=== PATIENT | male | born 1950 | race Caucasian/White ===

== ENCOUNTER 2016-08-20 00:54 | Emergency (ER) | payer MEDICARE ==
[2016-08-20 01:58] LABS: BASO % 0.5 % (0.0-2.0); EOS # 0.2 K/uL (0.0-0.7); EOS % 3.2 % (0.0-4.0); HEMATOCRIT 36.1 % (35.0-51.0); LYMPH # 2.3 K/uL (1.0-4.3); LYMPH % 49.3 % (20.0-40.0); MEAN CORPUSCULAR HEMOGLOBIN 31.2 pg (27.0-31.0); MEAN CORPUSCULAR HGB CONC 33.8 g/dL (33.0-37.0); MEAN PLATELET VOLUME 7.7 fL (7.2-11.7); MONO # 0.2 K/uL (0.0-0.8); NRBC % 0.1 % (0.0-2.0); RED CELL DISTRIBUTION WIDTH 15.6 % (11.5-14.5); WHITE BLOOD COUNT 4.7 K/uL (4.8-10.8)
[2016-08-20 02:07] LABS: CHLORIDE 107 mmol/L (98-107)
[2016-08-20 02:08] LABS: POTASSIUM 3.4 mmol/L (3.6-5.2); SODIUM 144 mmol/L (132-148)
[2016-08-20 02:10] LABS: ALB/GLOB RATIO 1.1 (1.0-2.1); ALKALINE PHOSPHATASE 52 U/L (38-126); AST/SGOT 35 U/L (17-59); BILIRUBIN,TOTAL 0.4 mg/dL (0.2-1.3); CARBON DIOXIDE 22 mmol/L (22-30); GFR AFRICAN-AMERICAN > 60; TOTAL PROTEIN 8.3 g/dL (6.3-8.3)
[2016-08-20 02:11] LABS: ALCOHOL SERUM 286 mg/dl (0-10); ALT/SGPT 20 U/L (21-72); BLOOD UREA NITROGEN 14 mg/dL (9-20); CALCIUM 8.9 mg/dl (8.6-10.4); GLUCOSE,RANDOM 100 mg/dL (75-110)
--- NOTE | 2016-08-20 03:05 | C.PDOC ---
History Of Present Illness <NguyenZulmaZain R - Last Filed: 08/20/16 06:22> <Vero Burns - Last Filed: 08/24/16 17:59> Patient is a 66 year old male brought to the ER via EMS for acute ETOH intoxication. Patient is belliergent and noncooperative. Was put on four point restaints on arrival. Has not verbalized any physical complaints at this moment. (PatrickZain Solorio) History Per: Patient History/Exam Limitations: no limitations Onset/Duration Of Symptoms: Hrs Current Symptoms Are (Timing): Still Present Suicide/Self Injury Attempted (Context): None Modifying Factor(s): Alcohol Associated Symptoms: denies: Depression, Suicidal Thoughts, Suicidal Plan Recent travel outside of the [place]: No <PatrickZain Solorio - Last Filed: 08/20/16 06:22> <Vero Burns - Last Filed: 08/24/16 17:59> Time Seen by Provider: 08/20/16 01:17 Chief Complaint (Nursing): Substance Abuse Past Medical History Reviewed: Historical Data, Nursing Documentation, Vital Signs - Medical History PMH: Back Problems, Seizures Surgical History: No Surg Hx Family History: States: Hypertension (mother) - Social History Hx Tobacco Use: No Hx Alcohol Use: Yes Hx Substance Use: No - Immunization History Hx Tetanus Toxoid Vaccination: Yes Hx Influenza Vaccination: Yes Hx Pneumococcal Vaccination: Yes <Zain Nguyen Lyndsey - Last Filed: 08/20/16 06:22> Review Of Systems Constitutional: Negative for: Fever, Chills Gastrointestinal: Negative for: Nausea, Vomiting, Diarrhea <Zain Nguyen - Last Filed: 08/20/16 06:22> Physical Exam - Physical Exam Appears: Non-toxic, No Acute Distress, Combative, Agitated, Other (ETOH on breath) Skin: Normal Color, Warm, Dry Head: Atraumatic, Normacephalic Oral Mucosa: Moist Chest: Symmetrical, No Tenderness Cardiovascular: Rhythm Regular, No Murmur Respiratory: Normal Breath Sounds, No Rales, No Rhonchi, No Wheezing Gastrointestinal/Abdominal: Soft, No Tenderness Neurological/Psych: Oriented x3, Normal Speech, Normal Cognition <Zain Nguyen - Last Filed: 08/20/16 06:22> ED Course And Treatment - Laboratory Results Result Diagrams: 08/20/16 01:54 08/20/16 01:54 O2 Sat by Pulse Oximetry: 97 (Room air) Pulse Ox Interpretation: Normal Progress Note: Urinalysis ordered. Haldol and ativan administered. <Zain Nguyen - Last Filed: 08/20/16 06:22> - Laboratory Results Result Diagrams: 08/20/16 01:54 08/20/16 01:54 <Vero Burns - Last Filed: 08/24/16 17:59> Disposition Counseled Patient/Family Regarding: Diagnosis - Disposition Disposition Time: 07:00 <Zain Nguyen - Last Filed: 08/20/16 06:22> Counseled Patient/Family Regarding: Diagnosis, Need For Followup - Disposition Disposition Time: 09:30 - POA Present On Arrival: None <Vero Burns - Last Filed: 08/24/16 17:59> - Disposition Referrals: [facility] [Outside] Disposition: HOME/ ROUTINE Condition: STABLE Instructions: Alcohol Intoxication (ED) Print Language: TURKMEN - Clinical Impression Clinical Impression: Alcohol intoxication - Scribe Statement The provider has reviewed the documentation as recorded by the Scribe <Zain Nguyen - Last Filed: 08/20/16 06:22> <Vero Burns - Last Filed: 08/24/16 17:59> - Scribe Statement Donald Funez All medical record entries made by the Scribe were at my direction and personally dictated by me. I have reviewed the chart and agree that the record accurately reflects my personal performance of the history, physical exam, medical decision making, and the department course for this patient. I have also personally directed, reviewed, and agree with the discharge instructions and disposition. (Zain Nguyen) Addendum <Zain Nguyen R - Last Filed: 08/20/16 06:22> <Vero Burns - Last Filed: 08/24/16 17:59> Addendum: 08/20/16 08:28 Patient currently AAOx3 but still not ambulating well. Pending sobriety. 9:30AM- Patient AAOx3, ambulating normally in the ED. Patient clinically sober at this time, will discharge. (Vero Burns)
[2016-08-20 09:38] VITALS: BP 108/76; PULSE 82; RESP 14; TEMP 98.3; O2SAT 96
== END 2016-08-20 09:39 | disposition home or self-care (01) ==
LOC: C.ER 00:54
DX: F10.129 Alcohol abuse with intoxication, unspecified (principal); Y90.8 Blood alcohol level of 240 mg/100 ml or more
CPT/HCPCS: 80053; 85025; 96372; 99285; G0480; J1630; J2060

== ENCOUNTER 2017-02-15 14:24 | Emergency (ER) | payer MEDICARE ==
[2017-02-15 14:30] VITALS: BMI 22.2
[2017-02-15 14:35] VITALS: BP 142/90; PULSE 76; RESP 20; TEMP 97.6; O2SAT 99
--- NOTE | 2017-02-15 15:00 | C.PDOC ---
History Of Present Illness 66 yo male come in for evaluation of multiple painful massed over L>R axilla gradually developed for past month. Otherwise, pt denies fever, chills, wound draining, noted trauma or injury, weakness, sensory or vascular deficits to B?L UEs. Pt denies previous sx in past. Ambulate to ED for evaluation, not in any apparent distress. Time Seen by Provider: 02/15/17 14:40 Chief Complaint (Nursing): Abnormal Skin Integrity History Per: Patient Past Medical History Reviewed: Historical Data, Nursing Documentation, Vital Signs Vital Signs: Last Vital Signs Temp 97.6 F 02/15/17 14:30 Pulse 76 02/15/17 14:30 Resp 20 02/15/17 14:30 BP 142/90 02/15/17 14:30 Pulse Ox 99 02/15/17 14:30 - Medical History PMH: Back Problems, Seizures Surgical History: No Surg Hx Family History: States: Hypertension (mother) - Social History Hx Tobacco Use: No Hx Alcohol Use: Yes Hx Substance Use: No - Immunization History Hx Tetanus Toxoid Vaccination: No Hx Influenza Vaccination: Yes Hx Pneumococcal Vaccination: Yes Review Of Systems Except As Marked, All Systems Reviewed And Found Negative. Constitutional: Negative for: Fever, Chills ENT: Negative for: Throat Pain Cardiovascular: Negative for: Chest Pain Respiratory: Negative for: Cough Musculoskeletal: Negative for: Neck Pain, Back Pain Skin: Positive for: Lesions Neurological: Negative for: Weakness, Numbness, Headache Physical Exam - Physical Exam Appears: Well, Non-toxic, No Acute Distress Skin: Normal Color, Warm, Other (B/L multiple tender small masses 1cm diameter over axilla L>R, no erythema, no flactulance, no proximal streaking.) Neck: Trachea Midline, Supple Cardiovascular: Rhythm Regular Respiratory: No Decreased Breath Sounds, No Accessory Muscle Use, No Stridor, No Wheezing Extremity: Normal ROM, No Tenderness, No Deformity, No Swelling Neurological/Psych: Oriented x3, Normal Speech, Normal Motor, Normal Sensation, Normal Reflexes ED Course And Treatment O2 Sat by Pulse Oximetry: 99 Pulse Ox Interpretation: Normal Progress Note: On re-evAl, pt is afebrile, hemodynamicalys table. non-toxic. Ambulatory in ED with stable gait. PulsEOx 99% RA. Neck: SUpple. Lungs: CTA B /L, BS equal B/L>. FAROM of B/L UEs, no neurovascular deficits. Neuorlogicaly intact. Skin: exam c/w multiple cystic lesions to B/L axilla, no cellulitis, no flactulance. Pt advised and ref. to F/u with SUrgery in 2-3 days for re- eavl. return to ED if any worsening or new changes. Disposition Counseled Patient/Family Regarding: Diagnosis, Need For Followup, Rx Given - Disposition Referrals: [facility] [Outside] [facility] [Outside] Adrian Rodriguez MD [Staff Provider] - Disposition: HOME/ ROUTINE Disposition Time: 14:58 Condition: STABLE Additional Instructions: Warm salty water compress to area Keep clean, dry Take medication as prescribed Follow up with Surgical [facility] located at [facility] facility or private Surgeon for further evaluation and treatment. Return to ED if any worsening or new changes. Prescriptions: Doxycycline Monohydrate [Mondoxyne Nl] 100 mg PO BID #14 capsule Instructions: Cyst (ED) - Clinical Impression Clinical Impression: Sebaceous cyst of left axilla
== END 2017-02-15 15:15 | disposition home or self-care (01) ==
LOC: C.ER 14:24
DX: L72.3 Sebaceous cyst (principal)

== ENCOUNTER 2017-05-22 07:26 | Inpatient (IN) | payer MEDICARE ==
[2017-05-22 07:27] VITALS: BMI 22.2
[2017-05-22] MEDS ORDERED: Sodium Chloride 0.9% 1,000 ML IV ONE (08:10)
--- NOTE | 2017-05-22 08:13 | C.PDOC ---
History Of Present Illness 66-YEAR-OLD MALE, PRESENTS TO THE EMERGENCY DEPARTMENT WITH COMPLAINTS OF sore throat, DIFFICULTY SWALLOWING, FEVER X 4 DAYS. SUBJ TEMP. UNABLE TO SWALLOW SOLIDS, ONLY ABLE TO TOLERATE LIQUIDS. +GEN WEAKNESS. LAST TYLENOL @ 2200. NO OTHER ASSOC SX EXAM MILD DIST NONTOXIC HEENT +R TONSILAR SWELL W EXTENSION TO SOFT PALATE; VOICE ALTERATION; NO STRIDOR , NO DROOLING, NO GROSS EXUDATE NECK SUPPLE REMAINDER NEG Time Seen by Provider: 05/22/17 07:50 Chief Complaint (Nursing): Fever History Per: Patient History/Exam Limitations: no limitations Past Medical History Reviewed: Historical Data, Nursing Documentation, Vital Signs Vital Signs: Last Vital Signs Temp 98.4 F 05/22/17 07:29 Pulse 64 05/22/17 07:29 Resp 18 05/22/17 07:29 BP 120/77 05/22/17 07:29 Pulse Ox 96 05/22/17 10:30 - Medical History PMH: Back Problems, Seizures Family History: States: No Known Family Hx, Hypertension (mother) - Social History Hx Tobacco Use: No Hx Alcohol Use: No Hx Substance Use: No - Immunization History Hx Tetanus Toxoid Vaccination: No Hx Influenza Vaccination: No Hx Pneumococcal Vaccination: No Review Of Systems Constitutional: Positive for: Fever, Weakness ENT: Positive for: Throat Pain Cardiovascular: Negative for: Chest Pain Respiratory: Negative for: Cough, Shortness of Breath Gastrointestinal: Negative for: Vomiting Musculoskeletal: Negative for: Neck Pain, Back Pain Skin: Negative for: Rash Neurological: Negative for: Numbness, Headache, Dizziness Physical Exam - Physical Exam Appears: Non-toxic, No Acute Distress Skin: Normal Color, Warm, Dry, No Rash Head: Normacephalic Eye(s): bilateral: PERRL Nose: Normal Oral Mucosa: Moist Lips: Normal Appearing Throat: Other ( +R TONSILAR SWELL W EXTENSION TO SOFT PALATE; VOICE ALTERATION; NO STRIDOR, NO DROOLING, NO GROSS EXUDATE) Neck: Normal ROM, Supple Cardiovascular: Rhythm Regular, No Murmur Respiratory: Normal Breath Sounds, No Accessory Muscle Use, No Wheezing Extremity: Normal ROM, No Deformity, No Swelling Neurological/Psych: Oriented x3, Normal Speech ED Course And Treatment - Laboratory Results Result Diagrams: 05/22/17 08:30 05/22/17 08:30 O2 Sat by Pulse Oximetry: 96 (RA) Pulse Ox Interpretation: Normal - CT Scan/US NECK Other Rad Studies (CT/US): Read By Radiologist (D/W DR PAZ: ?INFILT, SOME EDEMA POSSIBLE ABSCESS VS SQUAMOUS CELL. AIRWAY NARROWED ) Progress - Re-Evaluation Re-evaluation Note: 05/22/17 10:18 EXAM UNCH. NO DROOLING, VSS NARD. CO PERSIST PAIN, POOR PO TOLERANCE D/W DR KY MOE SPINNING OPERATOR AWARE OF ER FINDINGS WILL ADMIT 05/22/17 10:33 D/W DR ZAPATA ENT SPINNING OPERATOR AWARE OF ER FINDINGS, WILL EVAL IN ER - Data Reviewed Data Reviewed: Lab, Diagnostic imaging, Old records Disposition Counseled Patient/Family Regarding: Studies Performed, Diagnosis - Disposition Disposition: HOSPITALIZED Disposition Time: 10:29 Condition: SERIOUS Forms: [facility] (Kazakh) - POA Present On Arrival: None - Clinical Impression Clinical Impression: Throat mass, Difficulty swallowing - Scribe Statement The provider has reviewed the documentation as recorded by the Scribe (Corey García) All medical record entries made by the Scribe were at my direction and personally dictated by me. I have reviewed the chart and agree that the record accurately reflects my personal performance of the history, physical exam, medical decision making, and the department course for this patient. I have also personally directed, reviewed, and agree with the discharge instructions and disposition. Decision To Admit - Pt Status Changed To: Hospital Disposition Of: Observation - . Bed Request Type: Telemetry Admitting Physician: Alvarez Galvez Patient Diagnosis: Throat mass, Difficulty swallowing
[2017-05-22] MEDS ORDERED: Sodium Chloride 0.9% 1,000 ML ONE (08:18)
[2017-05-22 08:34] LABS: BASO % 0.3 % (0.0-2.0); EOS % 0.3 % (0.0-4.0); HEMOGLOBIN 13.3 g/dL (12.0-18.0); LYMPH # 1.5 K/uL (1.0-4.3); LYMPH % 13.5 % (20.0-40.0); MEAN CELL VOLUME 90.9 fL (80.0-94.0); MEAN CORPUSCULAR HEMOGLOBIN 31.7 pg (27.0-31.0); MEAN CORPUSCULAR HGB CONC 34.8 g/dL (33.0-37.0); MEAN PLATELET VOLUME 7.5 fL (7.2-11.7); MONO # 0.8 K/uL (0.0-0.8); MONO % 6.7 % (0.0-10.0); NEUT % 79.2 % (50.0-75.0); NRBC % 0.1 % (0.0-2.0); RBC 4.2 Mil/uL (4.40-5.90); RED CELL DISTRIBUTION WIDTH 15.8 % (11.5-14.5)
[2017-05-22 08:35] LABS: WHITE BLOOD COUNT 11.3 K/uL (4.8-10.8)
[2017-05-22 08:47] LABS: BLOOD UREA NITROGEN 19 mg/dL (9-20); CALCIUM 9.7 mg/dl (8.6-10.4); GFR AFRICAN-AMERICAN > 60; GFR NON-AFRICAN AMERICAN > 60
[2017-05-22] MEDS ORDERED: Iodixanol 320 MG/ML 100 ML BOTTLE IV ONE (09:34)
--- NOTE | 2017-05-22 10:22 | CT ---
PROCEDURE: CT scan of the neck dated 05/22/2017 HISTORY: Right tonsillar swelling. Rule out abscess. COMPARISON: No prior TECHNIQUE: CT of the neck with intravenous contrast. Coronal and sagittal reformats generated. Intravenous contrast dose: 100 cc Visipaque 320 Radiation dose: DLP 476.69 mGy-cm This CT exam was performed using one or more of the following dose reduction techniques: Automated exposure control, adjustment of the mA and/or kV according to patient size, and/or use of iterative reconstruction technique. . FINDINGS: Multiple small bilateral cervical lymph nodes are present GLANDS: Enlargement of the right palatine tonsilwith an irregular small area low attenuation along the posterior margin of the right palatine tonsil measures approximately 11.2 x 9.6 x 18 mm. While this could represent a peritonsillar abscess, the possibility of a cystic and/or necrotic mass lesion such as a squamous cell carcinoma not excluded. Clinical correlation recommended. The right palatine tonsil encroaches medially reducing the oropharyngeal airway. There also appears to be infiltration changes extending inferiorly along the right lateral vallecula and right margin of the epiglottis to the level of the pyriform sinuses the right-sided which is effaced mild medial displacement of the aryepiglottic fold as well. . There appears also to be infiltration extending across midline posteriorly at the level of the pyriform sinuses & false cords. Multiple small bilateral cervical lymph nodes are present within the jugulodigastric, submental/submandibular and posterior cervical spaces. None of these lymph nodes appear sleep effectively enlarged. Parotid and submandibular glands unremarkable. Thyroid gland is also unremarkable. Lung apices are clear. Mild multilevel degenerative spondylosis of the cervical spine. IMPRESSION: There is enlargement of the right palatine tonsil with an irregular small area low attenuation along the posterior margin of the right palatine tonsil measures approximately 11.2 x 9.6 mm. While this could represent a peritonsillar abscess, the possibility of a cystic and/or necrotic mass lesion such as a squamous cell carcinoma not excluded. Clinical correlation and ENT consultation recommended. The right palatine tonsil encroaches medially reducing the oropharyngeal airway. . There also appears to be infiltration changes extending inferiorly along the right lateral vallecula and right margin of the epiglottis to the level of the pyriform sinuses the right-sided which is effaced mild medial displacement of the aryepiglottic fold as well. . There appears also to be infiltration extending across midline posteriorly at the level of the pyriform sinuses & false cords. The indication Note that these findings were discussed with ER physician Dr. Thomson at 1015 hrs . with written down and read back verification.
[2017-05-22] MEDS ORDERED: Clindamycin 600mg/50ml NS 600 MG/50 ML BAG IVPB ONE (10:38)
[2017-05-22] MEDS ORDERED: Lidocaine 1%/Epinephrine 1:100000 30 ml vial IJ ONE (12:26)
[2017-05-22] MEDS: Dextrose 5%/0.45% NS 1,000 ML IV SCH (14:28)
[2017-05-22] MEDS: Morphine 4 MG/ML VIAL IV PRN (16:02)
--- NOTE | 2017-05-22 21:38 | CP.PCM.HP ---
Past Patient History - Infectious Disease Hx of Infectious Diseases: None - Past Medical History & Family History Past Medical History?: No - Past Social History Smoking Status: Never Smoked - NEUROLOGICAL Hx Seizures: Yes - MUSCULOSKELETAL/RHEUMATOLOGICAL Hx Musculoskeletal Disorders: Yes Hx Falls: No - PSYCHIATRIC Hx Substance Use: No - SURGICAL HISTORY Hx Surgeries: Yes Hx Orthopedic Surgery: Yes (left shoulder,right wrist) - ANESTHESIA Hx Anesthesia: Yes Meds Allergies/Adverse Reactions: Allergies Allergy/AdvReac Type Severity Reaction Status Date / Time No Known Allergies Allergy Verified 05/22/17 07:28 Results - Vital Signs Recent Vital Signs: Last Vital Signs Temp 98.2 F 05/22/17 15:00 Pulse 81 05/22/17 17:07 Resp 20 05/22/17 15:00 BP 158/91 H 05/22/17 15:00 Pulse Ox 96 05/22/17 15:00 - Labs Result Diagrams: 05/22/17 08:30 05/22/17 08:30 Labs: Laboratory Results - last 24 hr 05/22/17 05/22/17 08:30 08:30 WBC 11.3 H D RBC 4.20 L Hgb 13.3 Hct 38.2 MCV 90.9 MCH 31.7 H MCHC 34.8 RDW 15.8 H Plt Count 185 MPV 7.5 Neut % (Auto) 79.2 H Lymph % (Auto) 13.5 L [place] % (Auto) 6.7 Eos % (Auto) 0.3 Baso % (Auto) 0.3 Neut # (Auto) 9.0 H Lymph # (Auto) 1.5 [place] # (Auto) 0.8 Eos # (Auto) 0.0 Baso # (Auto) 0.0 Sodium 143 Potassium 4.1 Chloride 104 Carbon Dioxide 25 Anion Gap 18 BUN 19 Creatinine 1.1 Est GFR ( Amer) > 60 Est GFR (Non-Af Amer) > 60 Random Glucose 98 Calcium 9.7
[2017-05-23] MEDS: Dextrose 5%/0.45% NS 1,000 ML IV SCH ×2 (00:45→21:00)
--- NOTE | 2017-05-23 01:06 | OP ---
PROCEDURE DATE: 05/22/2017 PREOPERATIVE DIAGNOSIS: Peritonsillar abscess right. POSTOPERATIVE DIAGNOSIS: Peritonsillar abscess right. PROCEDURE: Incision and drainage of peritonsillar abscess right. SIGNIFICANT FINDINGS: Peritonsillar abscess right. DESCRIPTION OF PROCEDURE: The patient was placed in seated position. The right peritonsillar area was injected with lidocaine with epinephrine. Incision was made in the right peritonsillar area using a #11 blade. Blunt dissection was done. Pus was noted coming out. Clamp was used to break up all the loculations. Bleeding was controlled with time. The patient tolerated the procedure well. Jairo Arciniega MD
[2017-05-23] MEDS ORDERED: Piperacillin/Tazobact 3.375 GM in Sodium Chloride 100 ML IVPB SCH (08:45)
[2017-05-23] MEDS ORDERED: Pneumococcal 23-Valent Vaccine IM ONE (10:00)
[2017-05-23] MEDS ORDERED: Influenza Vaccine 60 mcg/0.5 mL SYR (4YR UP) IM ONE (10:00)
[2017-05-23] MEDS: Piperacillin/Tazobact 3.375 GM in Sodium Chloride 100 ML IVPB SCH ×2 (10:05→18:14)
[2017-05-23] MEDS: Enoxaparin 40 mg Syringe SC SCH (10:06)
[2017-05-23] MEDS: Lactobacillus Acidophilus 500 MU Cap PO SCH ×2 (10:07→18:16)
[2017-05-23] MEDS ORDERED: Clindamycin 600mg/50ml D5W 600 MG/50 ML VIAL IVPB SCH (14:00)
[2017-05-23 15:53] VITALS: RESP 20
[2017-05-23] MEDS: Morphine 4 MG/ML VIAL IV PRN (18:15)
--- NOTE | 2017-05-23 23:07 | CP.PCM.PN ---
Subjective - Date & Time of Evaluation Date of Evaluation: 05/23/17 Time of Evaluation: 08:40 Objective - Vital Signs/Intake and Output Vital Signs (last 24 hours): Temp Pulse Resp BP Pulse Ox 98.3 F 65 20 127/80 96 05/23/17 15:10 05/23/17 15:45 05/23/17 15:10 05/23/17 15:10 05/23/17 15:10 Intake and Output: 05/23/17 05/24/17 18:59 06:59 Intake Total 1200 Balance 1200 - Medications Medications: Current Medications Enoxaparin Sodium (Lovenox) 40 mg SC DAILY [facility] Last Admin: 05/23/17 10:06 Dose: 40 mg Dextrose/Sodium Chloride (Dextrose 5%/0.45% Ns 1000 Ml) 1,000 mls @ 100 mls/hr IV .Q10H [facility] Last Admin: 05/23/17 21:00 Dose: 100 mls/hr Piperacillin Sod/Tazobactam (Sod 3.375 gm/ Sodium Chloride) 100 mls @ 200 mls/ hr IVPB Q8H JOSE PRN Reason: Protocol Last Admin: 05/23/17 18:14 Dose: 200 mls/hr Ketorolac Tromethamine (Toradol) 15 mg IM Q6 PRN PRN Reason: Pain, moderate (4-7) Lactobacillus Acidophilus (Bacid Acidophilus) 1 cap PO BID [facility] Last Admin: 05/23/17 18:16 Dose: 1 cap Morphine Sulfate (Morphine) 2 mg IV Q4 PRN PRN Reason: severe pain Last Admin: 05/23/17 18:15 Dose: 2 mg - Labs Labs: 05/22/17 08:30 05/22/17 08:30
[2017-05-24] MEDS: Piperacillin/Tazobact 3.375 GM in Sodium Chloride 100 ML IVPB SCH ×2 (02:28→10:21)
[2017-05-24 08:06] LABS: BASO % 0.3 % (0.0-2.0); EOS % 0.7 % (0.0-4.0); LYMPH # 2.1 K/uL (1.0-4.3); MEAN CORPUSCULAR HEMOGLOBIN 31.4 pg (27.0-31.0); MEAN CORPUSCULAR HGB CONC 34.1 g/dL (33.0-37.0); MEAN PLATELET VOLUME 8.3 fL (7.2-11.7); MONO # 0.4 K/uL (0.0-0.8); MONO % 6.3 % (0.0-10.0); NEUT # 4.1 K/uL (1.8-7.0); NEUT % 61.7 % (50.0-75.0); RBC 3.29 Mil/uL (4.40-5.90); RED CELL DISTRIBUTION WIDTH 15.9 % (11.5-14.5); WHITE BLOOD COUNT 6.7 K/uL (4.8-10.8)
[2017-05-24 08:08] LABS: BLOOD UREA NITROGEN 15 mg/dL (9-20); CALCIUM 8.4 mg/dl (8.6-10.4); GFR AFRICAN-AMERICAN > 60; GFR NON-AFRICAN AMERICAN > 60
[2017-05-24 08:13] LABS: HEMOGLOBIN 10.3 g/dL (12.0-18.0)
[2017-05-24 08:33] VITALS: O2SAT 98
[2017-05-24] MEDS: Lactobacillus Acidophilus 500 MU Cap PO SCH (10:22)
[2017-05-24] MEDS: Enoxaparin 40 mg Syringe SC SCH (10:22)
--- NOTE | 2017-05-24 11:03 | CP.PCM.CON ---
History of Present Illness - History of Present Illness History of Present Illness: 66-YEAR-OLD MALE, PRESENTS TO THE EMERGENCY DEPARTMENT WITH COMPLAINTS OF sore throat, DIFFICULTY SWALLOWING, FEVER X 4 DAYS. SUBJ TEMP. UNABLE TO SWALLOW SOLIDS, ONLY ABLE TO TOLERATE LIQUIDS. +GEN WEAKNESS. LAST TYLENOL @ 2200. NO OTHER ASSOC SX HAD EMERGENCY SURGERY TO DRAIN ABSCESS IV ANTIBIOTICS ORDERED SWELLING COMING DOWN PHARYNX LESS SWOLLEN BUT STILL PAIN ON SWALLOWING IV RX RENEWED Review of Systems - Review of Systems All systems: reviewed and no additional remarkable complaints except - Constitutional Constitutional: As Per HPI - EENT Eyes: absent: As Per HPI, Blind Spots, Blurred Vision, Change in Vision, Decreased Night Vision, Diplopia, Discharge, Dry Eye, Exophthalmos, Floaters, Irritation, Itchy Eyes, Loss of Peripheral Vision, Pain, Photophobia, Requires Corrective Lenses, Sees Flashes, Spots in Vision, Tunnel Vision, Other Visual Disturbances, Loss of Vision, Other Ears: absent: As Per HPI, Decreased Hearing, Ear Discharge, Ear Pain, Tinnitus, Abnormal Hearing, Disequilibrium, Dizziness, Other Nose/Mouth/Throat: As Per HPI - Cardiovascular Cardiovascular: absent: As Per HPI, Acrocyanosis, Chest Pain, Chest Pain at Rest , Chest Pain with Activity, Claudication, Diaphoresis, Dyspnea, Dyspnea on Exertion, Edema, Irregular Heart Rhythm, Pain Radiating to Arm/Neck/Jaw, Leg Edema, Leg Ulcers, Lightheadedness, Orthopnea, Palpitations, Paroxysmal Nocturnal Dyspnea, Pedal Edema, Radiating Pain, Rapid Heart Rate, Slow Heart Rate, Syncope, Other - Respiratory Respiratory: absent: As Per HPI, Cough, Dyspnea, Hemoptysis, Dyspnea on Exertion , Wheezing, Snoring, Stridor, Pain on Inspiration, Chest Congestion, Excessive Mucous Production, Change in Mucous Color, Pain with Coughing, Other - Gastrointestinal Gastrointestinal: absent: As Per HPI, Abdominal Pain, Belching, Bloating, Change in Bowel Habits, Change in Stool Character, Coffee Ground Emesis, Constipation, Cramping, Diarrhea, Dyspepsia, Dysphagia, Early Satiety, Excessive Flatus, Fecal Incontinence, Heartburn, Hematemesis, Hematochezia, Loose Stools, Melena, Nausea, Odynophagia, Temesmus, Vomiting, Other - Genitourinary Genitourinary: absent: As Per HPI, Change in Urinary Stream, Difficulty Urinating, Dysuria, Flank Pain, Hematuria, Pyuria, Nocturia, Urinary Incontinence, Urinary Frequency, Urinary Hesitance, Urinary Urgency, Voiding Freq/Small Amts, Freq UTI, Hx Renal/Bladder Calculi, Hx /Renal Surgery, Bladder Distension, Other - Musculoskeletal Musculoskeletal: absent: As Per HPI, Abnormal Gait, Arthralgias, Atrophy, Back Pain, Deformity, Joint Swelling, Limited Range of Motion, Loss of Height, Muscle Cramps, Muscle Weakness, Myalgias, Neck Pain, Numbness, Radiating Pain into Limb, Stiffness, Tingling, Other - Integumentary Integumentary: absent: As Per HPI, Acne, Alopecia, Bleeding Lesions, Change in Hair, Change in Nails, Change in Pigmentation, Changing Lesions, Dry Skin, Erythema, Furuncle, Hirsutism, Lesions, New Lesions, Non-Healing Lesions, Photosensitivity, Pruritus, Rash, Skin Pain, Skin Ulcer, Sores, Striae, Swelling , Unusual Bruising, Wounds, Jaundice, Other - Neurological Neurological: absent: As Per HPI, Abnormal Gait, Abnormal Hearing, Abnormal Movements, Abnormal Speech, Behavioral Changes, Burning Sensations, Confusion, Convulsions, Disequilibrium, Dizziness, Numbness, Focal Weakness, Frequent Falls , Headaches, Lack of Coordination, Loss of Vision, Memory Loss, Paresthesias, Radicular Pain, Restless Legs, Sensory Deficit, Syncope, Tingling, Tremor, Vertigo, Weakness, Other Visual Disturbances, Other - Psychiatric Psychiatric: absent: As Per HPI, Abnormal Sleep Pattern, Anhedonia, Anxiety, Auditory Hallucinations, Behavioral Changes, Change in Appetite, Change in Libido, Confusion, Depression, Difficulty Concentrating, Hallucinations, Homicidal Ideation, Hopelessness, Irritability, Memory Loss, Mood Swings, Panic Attacks, Paranoia, Suicidal Ideation, Visual Hallucinations, Tactile Hallucinations, Other - Endocrine Endocrine: absent: As Per HPI, Change in Body Appearance, Change in Libido, Cold Intolorance, Deepening of Voice, Excessive Sweating, Fatigue, Flushing, Heat Intolorance, Increase in Ring/Shoe/Hat Size, Palpitations, Polydipsia, Polyphagia, Polyuria, Other - Hematologic/Lymphatic Hematologic: absent: As Per HPI, Easy Bleeding, Easy Bruising, Lymphadenopathy, Other Past Patient History - Infectious Disease Hx of Infectious Diseases: None - Past Medical History & Family History Past Medical History?: No - Past Social History Smoking Status: Never Smoked - NEUROLOGICAL Hx Seizures: Yes - MUSCULOSKELETAL/RHEUMATOLOGICAL Hx Musculoskeletal Disorders: Yes Hx Falls: No - PSYCHIATRIC Hx Substance Use: No - SURGICAL HISTORY Hx Surgeries: Yes Hx Orthopedic Surgery: Yes (left shoulder,right wrist) - ANESTHESIA Hx Anesthesia: Yes Meds Allergies/Adverse Reactions: Allergies Allergy/AdvReac Type Severity Reaction Status Date / Time No Known Allergies Allergy Verified 05/22/17 07:28 - Medications Medications: Current Medications Enoxaparin Sodium (Lovenox) 40 mg SC DAILY [facility] Last Admin: 05/24/17 10:22 Dose: 40 mg Dextrose/Sodium Chloride (Dextrose 5%/0.45% Ns 1000 Ml) 1,000 mls @ 100 mls/hr IV .Q10H [facility] Last Admin: 05/23/17 21:00 Dose: 100 mls/hr Piperacillin Sod/Tazobactam (Sod 3.375 gm/ Sodium Chloride) 100 mls @ 200 mls/ hr IVPB Q8H [facility] PRN Reason: Protocol Last Admin: 05/24/17 10:21 Dose: 200 mls/hr Ketorolac Tromethamine (Toradol) 15 mg IM Q6 PRN PRN Reason: Pain, moderate (4-7) Lactobacillus Acidophilus (Bacid Acidophilus) 1 cap PO BID [facility] Last Admin: 05/24/17 10:22 Dose: 1 cap Morphine Sulfate (Morphine) 2 mg IV Q4 PRN PRN Reason: severe pain Last Admin: 05/23/17 18:15 Dose: 2 mg Physical Exam - Constitutional Appears: Non-toxic, Chronically Ill - Head Exam Head Exam: NORMOCEPHALIC - Eye Exam Eye Exam: absent: Scleral icterus - ENT Exam ENT Exam: Mucous Membranes Dry, Normal External Ear Exam. absent: Normal Exam, Normal Oropharynx Additional comments: ECCHYMOSIS / SWELLING PHARYNX RIGHT SIDE - Neck Exam Neck exam: Negative for: Lymphadenopathy, Thyromegaly - Respiratory Exam Respiratory Exam: Decreased Breath Sounds - Cardiovascular Exam Cardiovascular Exam: REGULAR RHYTHM - GI/Abdominal Exam GI & Abdominal Exam: Diminished Bowel Sounds - Rectal Exam Rectal Exam: Deferred - Extremities Exam Extremities exam: Negative for: pedal edema - Back Exam Back exam: absent: CVA tenderness (L), CVA tenderness (R) - Neurological Exam Neurological exam: Alert, CN II-XII Intact, Oriented x3, Reflexes Normal - Psychiatric Exam Psychiatric exam: Depressed - Skin Skin Exam: Dry Results - Vital Signs Recent Vital Signs: Last Vital Signs Temp 97.9 F 05/24/17 08:30 Pulse 60 05/24/17 08:30 Resp 20 05/24/17 08:30 BP 130/78 05/24/17 08:30 Pulse Ox 98 05/24/17 08:30 - Labs Result Diagrams: 05/24/17 07:47 05/24/17 07:47 Labs: Laboratory Results - last 24 hr 05/24/17 05/24/17 07:47 07:47 WBC 6.7 RBC 3.29 L Hgb 10.3 L D Hct 30.3 L MCV 92.0 MCH 31.4 H MCHC 34.1 RDW 15.9 H Plt Count 182 MPV 8.3 Neut % (Auto) 61.7 Lymph % (Auto) 31.0 [place] % (Auto) 6.3 Eos % (Auto) 0.7 Baso % (Auto) 0.3 Neut # (Auto) 4.1 Lymph # (Auto) 2.1 [place] # (Auto) 0.4 Eos # (Auto) 0.0 Baso # (Auto) 0.0 Sodium 142 Potassium 3.9 Chloride 108 H Carbon Dioxide 25 Anion Gap 12 BUN 15 Creatinine 0.9 Est GFR ( Amer) > 60 Est GFR (Non-Af Amer) > 60 Random Glucose 97 Calcium 8.4 L Assessment & Plan (1) Difficulty swallowing Status: Acute (2) Throat mass Status: Acute - Assessment and Plan (Free Text) Assessment: DANE SANCHEZ A STREP CONT IV RX THEN PO FOR 10 DAYS
[2017-05-24] MEDS: Dextrose 5%/0.45% NS 1,000 ML IV SCH (11:33)
--- NOTE | 2017-05-24 15:41 | CP.PCM.PN ---
Subjective - Date & Time of Evaluation Date of Evaluation: 05/24/17 Time of Evaluation: 15:37 - Subjective Subjective: PT SEEN TODAY BY ID; RECOMMENDATIONS DISCUSSED WITH DR. PABON. AT THIS TIME HE RECOMMENDS TO CONTINUE 2-3 DAYS OF IV ABX (AFTER THAT PT CAN BE SWITCHED TO PO ABX X10 DAYS) AND A THROAT CX. BLOOD CX ALSO REQUESTED; RESOLUTION SPECIALIST ORDERED BLOOD CX X2. WILL CONTINUE TO MX. LABS FOR 4/3 MORNING ORDERED. NO FURTHER ORDERS. Objective - Vital Signs/Intake and Output Vital Signs (last 24 hours): Temp Pulse Resp BP Pulse Ox 97.9 F 60 20 130/78 98 05/24/17 08:30 05/24/17 08:30 05/24/17 08:30 05/24/17 08:30 05/24/17 08:30 Intake and Output: 05/24/17 05/24/17 06:59 18:59 Intake Total 900 880 Balance 900 880 - Medications Medications: Current Medications Enoxaparin Sodium (Lovenox) 40 mg SC DAILY [facility] Last Admin: 05/24/17 10:22 Dose: 40 mg Dextrose/Sodium Chloride (Dextrose 5%/0.45% Ns 1000 Ml) 1,000 mls @ 100 mls/hr IV .Q10H [facility] Last Admin: 05/24/17 11:33 Dose: 100 mls/hr Piperacillin Sod/Tazobactam (Sod 3.375 gm/ Sodium Chloride) 100 mls @ 200 mls/ hr IVPB Q8H [facility] PRN Reason: Protocol Last Admin: 05/24/17 10:21 Dose: 200 mls/hr Ketorolac Tromethamine (Toradol) 15 mg IM Q6 PRN PRN Reason: Pain, moderate (4-7) Lactobacillus Acidophilus (Bacid Acidophilus) 1 cap PO BID [facility] Last Admin: 05/24/17 10:22 Dose: 1 cap Morphine Sulfate (Morphine) 2 mg IV Q4 PRN PRN Reason: severe pain Last Admin: 05/23/17 18:15 Dose: 2 mg - Labs Labs: 05/24/17 07:47 05/24/17 07:47
--- NOTE | 2017-05-24 16:58 | CP.PCM.DIS ---
Provider - Provider Date of Admission: 05/22/17 10:22 Attending physician: Alvarez Galvez MD Time Spent in preparation of Discharge (in minutes): 30 Hospital Course - Lab Results Lab Results: Most Recent Lab Values WBC 6.7 K/uL (4.8-10.8) 05/24/17 07:47 RBC 3.29 Mil/uL (4.40-5.90) L 05/24/17 07:47 Hgb 10.3 g/dL (12.0-18.0) L D 05/24/17 07:47 Hct 30.3 % (35.0-51.0) L 05/24/17 07:47 MCV 92.0 fL (80.0-94.0) 05/24/17 07:47 MCH 31.4 pg (27.0-31.0) H 05/24/17 07:47 MCHC 34.1 g/dL (33.0-37.0) 05/24/17 07:47 RDW 15.9 % (11.5-14.5) H 05/24/17 07:47 Plt Count 182 K/uL (130-400) 05/24/17 07:47 MPV 8.3 fL (7.2-11.7) 05/24/17 07:47 Neut % (Auto) 61.7 % (50.0-75.0) 05/24/17 07:47 Lymph % (Auto) 31.0 % (20.0-40.0) 05/24/17 07:47 [place] % (Auto) 6.3 % (0.0-10.0) 05/24/17 07:47 Eos % (Auto) 0.7 % (0.0-4.0) 05/24/17 07:47 Baso % (Auto) 0.3 % (0.0-2.0) 05/24/17 07:47 Neut # (Auto) 4.1 K/uL (1.8-7.0) 05/24/17 07:47 Lymph # (Auto) 2.1 K/uL (1.0-4.3) 05/24/17 07:47 [place] # (Auto) 0.4 K/uL (0.0-0.8) 05/24/17 07:47 Eos # (Auto) 0.0 K/uL (0.0-0.7) 05/24/17 07:47 Baso # (Auto) 0.0 K/uL (0.0-0.2) 05/24/17 07:47 Sodium 142 mmol/L (132-148) 05/24/17 07:47 Potassium 3.9 mmol/L (3.6-5.2) 05/24/17 07:47 Chloride 108 mmol/L (98-107) H 05/24/17 07:47 Carbon Dioxide 25 mmol/L (22-30) 05/24/17 07:47 Anion Gap 12 (10-20) 05/24/17 07:47 BUN 15 mg/dL (9-20) 05/24/17 07:47 Creatinine 0.9 mg/dL (0.8-1.5) 04 07:47 Est GFR ( Amer) > 60 05/24/17 07:47 Est GFR (Non-Af Amer) > 60 05/24/17 07:47 Random Glucose 97 mg/dL (75-110) 05/24/17 07:47 Calcium 8.4 mg/dl (8.6-10.4) L 05/24/17 07:47 Discharge Exam - Head Exam Head Exam: NORMOCEPHALIC Discharge Plan - Follow Up Plan Condition: SERIOUS Disposition: HOME/ ROUTINE
[2017-05-24 17:00] VITALS: BP 152/90; PULSE 57; TEMP 97.7
== END 2017-05-24 18:25 | disposition home or self-care (01) | DRG 134 ==
LOC: C.ER 07:26 → C.9E 10:22 → C.6T 10:47
PROVIDERS: ADMIT Internal Medicine; ATTEND Internal Medicine
PROC: 0C9PXZZ Drainage of Tonsils, External Approach (ICD-10-PCS; principal; 2017-05-22)
DX: J36 Peritonsillar abscess (principal); R53.1 Weakness; B95.0 Streptococcus, group A, as the cause of diseases classified elsewhere